=== PATIENT | female | born 1990 | race Caucasian/White ===

== ENCOUNTER → 2019-12-13 | Outpatient (CLI) | payer BC ==
--- NOTE | 2019-12-13 14:10 | US ---
EXAMINATION TYPE: US venous doppler duplex LE RT DATE OF EXAM: 12/13/2019 1:58 PM COMPARISON: NONE CLINICAL HISTORY: M79.661 pain in Lower right leg. No trauma. No redness or swelling. Patient state s just having Nexplanon removed. SIDE PERFORMED: Right TECHNIQUE: The lower extremity deep venous system is examined utilizing real time linear array sonog leidy with graded compression, doppler sonography and color-flow sonography. VESSELS IMAGED: External Iliac Vein (EIV) Common Femoral Vein Deep Femoral Vein Greater Saphenous Vein * Femoral Vein Popliteal Vein Small Saphenous Vein * Proximal Calf Veins (* superficial vessels) Right Leg: Negative for DVT IMPRESSION: No evidence for DVT.
== END | disposition home or self-care (01) ==
LOC: RADUSWWP 13:42
PROVIDERS: ATTEND Obstetrics & Gynecology
DX: M79.661 Pain in right lower leg (principal); Z88.2 Allergy status to sulfonamides